=== PATIENT | male | born 1970 | race Caucasian/White ===

== ENCOUNTER 2016-08-20 11:34 | Emergency (ER) | payer OTHER ==
--- NOTE | 2016-08-20 12:36 | ED NURSING NOTES ---
Clinical Report - Nurses [address] [place] [address] [place] [address] 08/20/2016 11:35 Patient: TETE BUSTILLOS TRIAGE Acuity: LEVEL 4. Chief Complaint: INJURY TO RIGHT HAND. Alert. No acute distress. BOWNE COMA SCORE: Bowen Coma Scale: 15- eyes open spontaneously (4); best verbal response- oriented x 4 (5); best motor response- obeys commands (6). --11:52 Elizabeth Becerra R.N. 11:46 08/20/16. BP: 180/86. HR: 66. RR: 12. O2 saturation: 99% on room air. Temp: 97.8 F (oral). Pain level now: 0/10. --11:52 Elizabeth Becerra R.N. Weight: 113.3 kg stated. Height/Length: 71 inches Per Patient. BMI: 34.9. --11:51 Elizabeth Becerra R.N. Medications AmLODIPine Besylate Oral 10 mg. Lisinopril Oral 20 mg. --11:49 Elizabeth Becerar R.N. Medication/allergy information source: the patient. --11:52 Elizabeth Becerra R.N. Allergies Beta Adrenergic Blockers. --11:49 Elizabeth Becerra R.N. History Arrived by private vehicle, and unaccompanied. Primary physician (Lori). This occurred (2 days ago). He sustained a laceration from a sharp edge. 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 PAST MEDICAL HX: Tetanus status: up-to-date. Immunizations: up-to-date. SOCIAL HX: Never smoker. Occasional alcohol use. No drug use. FALL RISK ASSESSMENT: Fall risk assessment completed. No fall risk identified. NUTRITIONAL RISK ASSESSMENT: The nutritional risk assessment revealed no deficiencies. FUNCTIONAL ASSESSMENT: Functional assessment: no impairments noted. LEARNING NEEDS ASSESSMENT: The learning needs assessment revealed no barriers. SKIN INTEGRITY ASSESSMENT: Skin integrity risk assessment completed. No skin integrity risk identified. --11:52 Elizabeth Becerra R.N. PROBLEMS: Prior Nosebleeds. PVC - Premature Venticular Complex(s). Hypertension. Epistaxis. CVA - Cerebrovascular Accident. --11:50 Elizabeth Becerra R.N. ADDITIONAL SURGERIES: Femur. --11:50 Elizabeth Becerra R.N. Assessment GENERAL / NEURO / PSYCH: Alert. Oriented X 4. Appears in no acute distress. Patient appears calm and cooperative. RESPIRATORY: Respirations not labored. CVS: Capillary refill less than 2 seconds. SKIN: Mucous membranes are pink. Skin is warm and dry. --11:52 Elizabeth Becerra R.N. Interventions ID band on patient. To treatment room. --11:52 Elizabeth Becerra R.N. PHYSICAL ASSESSMENT 11:53 08/20/16. Ambulatory to room. GENERAL / NEURO / PSYCH: Oriented X 4. Alert. Appears in no acute distress. EXTREMITIES: Capillary refill is less than 2 seconds in the extremities. Extremity pulses are within normal limits. Neuro-vascular status intact to the extremity. SKIN: Skin intact. Skin is warm and dry. --11:53 Elizabeth Becerra R.N. NURSING PROGRESS NOTES 11:53 08/20/16. Two patient identifiers checked. Call light placed in reach. Side rails up. Bed placed in lowest position. Brakes of bed on. Patient ready for evaluation- chart flagged. --11:53 Elizabeth Becerra R.N. DISPOSITION / DISCHARGE Departure time: 12:54. Condition at departure: improved. No learning barriers present. Discharge instructions provided and reviewed with the patient. Patient verbalized understanding. Written instructions provided in Kazakh. The patient was discharged home. He left the Emergency Department ambulatory and via private vehicle. --12:54 Tiffanie Maciel R.N. Locked/Released at 08/20/2016 13:57 by Tiffanie Maciel R.N.
--- NOTE | 2016-08-20 12:36 | ED NURSING NOTES ---
Clinical Report - Nurses [address] [place] [place] [address] 08/20/2016 11:35 Patient: TETE BUSTILLOS TRIAGE Acuity: LEVEL 4. Chief Complaint: INJURY TO RIGHT HAND. Alert. No acute distress. BOWEN COMA SCORE: Bowen Coma Scale: 15- eyes open spontaneously (4); best verbal response- oriented x 4 (5); best motor response- obeys commands (6). --11:52 Elizabeth Becerra R.N. 11:46 08/20/16. BP: 180/86. HR: 66. RR: 12. O2 saturation: 99% on room air. Temp: 97.8 F (oral). Pain level now: 0/10. --11:52 Elizabeth Becerra R.N. Weight: 113.3 kg stated. Height/Length: 71 inches Per Patient. BMI: 34.9. --11:51 Elizabeth Becerra R.N. Medications AmLODIPine Besylate Oral 10 mg. Lisinopril Oral 20 mg. --11:49 Elizabeth Becerra R.N. Medication/allergy information source: the patient. --11:52 Elizabeth Becerra R.N. Allergies Beta Adrenergic Blockers. --11:49 Elizabeth Becerra R.N. History Arrived by private vehicle, and unaccompanied. Primary physician (Lori). This occurred (2 days ago). He sustained a laceration from a sharp edge. 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 PAST MEDICAL HX: Tetanus status: up-to-date. Immunizations: up-to-date. SOCIAL HX: Never smoker. Occasional alcohol use. No drug use. FALL RISK ASSESSMENT: Fall risk assessment completed. No fall risk identified. NUTRITIONAL RISK ASSESSMENT: The nutritional risk assessment revealed no deficiencies. FUNCTIONAL ASSESSMENT: Functional assessment: no impairments noted. LEARNING NEEDS ASSESSMENT: The learning needs assessment revealed no barriers. SKIN INTEGRITY ASSESSMENT: Skin integrity risk assessment completed. No skin integrity risk identified. --11:52 Elizabeth Becerra R.N. PROBLEMS: Prior Nosebleeds. PVC - Premature Venticular Complex(s). Hypertension. Epistaxis. CVA - Cerebrovascular Accident. --11:50 Elizabeth Becerra R.N. ADDITIONAL SURGERIES: Femur. --11:50 Elizabeth Becerra R.N. Assessment GENERAL / NEURO / PSYCH: Alert. Oriented X 4. Appears in no acute distress. Patient appears calm and cooperative. RESPIRATORY: Respirations not labored. CVS: Capillary refill less than 2 seconds. SKIN: Mucous membranes are pink. Skin is warm and dry. --11:52 Elizabeth Becerra R.N. Interventions ID band on patient. To treatment room. --11:52 Elizabeth Becerra R.N. PHYSICAL ASSESSMENT 11:53 08/20/16. Ambulatory to room. GENERAL / NEURO / PSYCH: Oriented X 4. Alert. Appears in no acute distress. EXTREMITIES: Capillary refill is less than 2 seconds in the extremities. Extremity pulses are within normal limits. Neuro-vascular status intact to the extremity. SKIN: Skin intact. Skin is warm and dry. --11:53 Elizabeth Becerra R.N. NURSING PROGRESS NOTES 11:53 08/20/16. Two patient identifiers checked. Call light placed in reach. Side rails up. Bed placed in lowest position. Brakes of bed on. Patient ready for evaluation- chart flagged. --11:53 Elizabeth Becerra R.N. DISPOSITION / DISCHARGE Departure time: 12:54. Condition at departure: improved. No learning barriers present. Discharge instructions provided and reviewed with the patient. Patient verbalized understanding. Written instructions provided in Nigerien. The patient was discharged home. He left the Emergency Department ambulatory and via private vehicle. --12:54 Tiffanie Maciel R.N. Locked/Released at 08/20/2016 13:57 by Tiffanie Maciel R.N.
--- NOTE | 2016-08-20 13:57 | ED CLINICAL REPORT ---
Clinical Report - Physicians/Mid Levels [facility] [address] [place] [address] 08/20/2016 11:35 Patient: TETE BUSTILLOS Time Seen: 1230; initial patient contact, initial documentation, patient care assumed. Arrived- By private vehicle. Historian- patient. HISTORY OF PRESENT ILLNESS Chief Complaint: Injury to the right hand. The injury happened about 2 days ago. The patient sustained a laceration from a sharp edge (metal food can while opening it). Occurred at home. Patient is not experiencing pain. Patient denies injury to the head or neck. No other injury. ( wound care being done with peroxide, soap and water and lavender). REVIEW OF SYSTEMS The patient sustained a laceration. No swelling, tingling, numbness or weakness. All systems otherwise negative, except as recorded above. PAST HISTORY See nurses notes. PROBLEMS: Prior Nosebleeds. PVC - Premature Venticular Complex(s). Hypertension. Epistaxis. CVA - Cerebrovascular Accident. --11:50 Elizabeth Becerra R.N. ADDITIONAL SURGERIES: Femur. --11:50 Elizabeth Becerra R.N. The patient's dominant hand is the right. Tetanus immunization status is up-to-date. SOCIAL HISTORY Never smoker. No alcohol use or drug use. No recent travel. Is a local resident. FAMILY HISTORY No significant family medical history. ADDITIONAL NOTES The nursing notes have been reviewed with agreement regarding the chief complaint, HPI, ROS, PMH and patient medications and allergies. PHYSICAL EXAM Vital Signs: 08/20/2016 11:46 BP: 180/86. HR: 66. RR: 12. O2 saturation: 99%. Temp: 97.8 F. Pain level now: 0/10. Have been reviewed as abnormal and appear to be correct. Hypertensive. Heart rate normal. Respiratory rate normal. Temperature normal. Oxygen saturation normal. Appearance: Alert. Oriented X3. No acute distress. Head: Head atraumatic. Eyes: Pupils equal, round and reactive to light. Eyes normal inspection. Respiratory: No respiratory distress. Skin: Skin warm and dry. Skin intact. Extremities: Hand injury present. Right thumb-index finger web space: superficial 1.0 cm laceration. Neurovascular intact distally. (healing 1cm lac, no active bleeding, no s/s of infection, wound clean, no erythema, nontender, no dc, no warmth, no fb). No erythema, tenderness, swelling, abrasion or ecchymosis. No puncture wound, foreign body or deformity. No limitation in movement. No wrist injury. Hand and wrist exam otherwise negative. Extremities otherwise negative. Neuro, Vascular and Tendons: Vascular status intact. Sensation intact. Motor intact. Tendon function intact. Neuro: Oriented X 3. No motor deficit. No sensory deficit. Note: isolated injury to hand. PROGRESS AND PROCEDURES Patient counseled in person regarding the patient's stable condition, normal exam and diagnosis. Differential Diagnosis: Other possible considerations: hand lac, fb, infection, delayed tx, skin avulsion, tendon injury. Above considerations are based on history and physical exam. Differential diagnosis was discussed with patient. Disposition: Discharged home in good and improved condition (12:36). Condition: good and stable. CLINICAL IMPRESSION Single superficial laceration to the right hand. Delayed treatment.No infection, foreign body present or right fingernail injury. INSTRUCTIONS Protect wound and keep wound area clean. Soak in warm soapy water twice daily. Apply bacitracin twice daily. Follow-up: Follow up with your doctor in about three days as needed and for wound check. Call for an appointment. Summary of care provided to patient. Screening today revealed the patient's blood pressure to be in the hypertensive range. The patient should follow up with a primary care provider for blood pressure management. Understanding of the discharge instructions verbalized by patient. (Electronically signed by Bridgette Bruno A.R.N.P. 08/20/2016 13:00)
--- NOTE | 2016-08-20 13:57 | ED DISCHARGE INSTRUCTIONS ---
Patient: TETE BUSTILLOS General Instructions [facility] VisitID: [id number] [place] [address] 45y, M Registration Date/Time: 08/20/2016 Single superficial laceration to the right hand. Delayed treatment.No infection, foreign body present or right fingernail injury. INSTRUCTIONS Protect wound and keep wound area clean. Soak in warm soapy water twice daily. Apply bacitracin twice daily. Follow-up: Follow up with your doctor in about three days as needed and for wound check. Call for an appointment. Summary of care provided to patient. Screening today revealed the patient's blood pressure to be in the hypertensive range. The patient should follow up with a primary care provider for blood pressure management. Understanding of the discharge instructions verbalized by patient. ADDITIONAL INFORMATION Laceration, Extremity (Sutures, Jc, Or Tape) A laceration is a cut through the skin. This will usually require stitches (sutures) or jc if it is deep. Minor cuts may be treated with surgical tape closures. Home care The following guidelines will help you care for your laceration at home: Keep the wound clean and dry. If a bandage was applied and it becomes wet or dirty, replace it. Otherwise, leave it in place for the first 24 hours, then change it once a day or as directed. If stitches or jc were used, clean the wound daily: After removing the bandage, wash the area with soap and water. Use a wet cotton swab to loosen and remove any blood or crust that forms. After cleaning, keep the wound clean and dry. Talk with your doctor before applying any antibiotic ointment to the wound. Reapply the bandage. You may remove the bandage to shower as usual after the first 24 hours, but do not soak the area in water (no swimming) until the stitches or jc are removed. If surgical tape closures were used, keep the area clean and dry. If it becomes wet, blot it dry with a towel. The doctor may prescribe an antibiotic cream or ointment to prevent infection. Do not stop taking this medication until you have finished the prescribed course or the doctor tells you to stop. The doctor may also prescribe medications for pain. Follow the doctors instructions for taking these medications. If you have chronic liver or kidney disease or ever had a stomach ulcer or GI bleeding, talk with your doctor before using these medicines. Follow-up care Follow up with your health care provider. Most skin wounds heal within ten days. However, an infection may sometimes occur despite proper treatment. Therefore, check the wound daily for the signs of infection listed below. Stitches and jc should be removed within 714 days. If surgical tape closures were used, you may remove them after 10 days, if they have not fallen off by then. Notify your doctor if you notice persistent numbness or weakness in the injured extremity. (Note:A radiologist will review any X-rays that were taken. We will notify you of any new findings that may affect your care.) When to seek medical care Get prompt medical attention if any of these occur: Increasing pain in the wound Redness, swelling, or pus coming from the wound Fever of 100.4F (38C) or higher, or as directed by your health care provider If stitches or jc come apart or fall out before your next appointment If the surgical tape closures fall off within seven days, or the wound edges re-open Bleeding not controlled by direct pressure You have been given the following additional information: Laceration, Extrem (Suture, Staple, Or Tape) (Electronically signed by Bridgette Bruno A.R.N.P. 08/20/2016 13:00)
--- NOTE | 2016-08-20 13:57 | ED ORDER SUMMARY ---
..... Patient: TETE BUSTILLOS OrderSheet [facility] VisitID: [id number] [address] [place] [address] 45y, M Registration Date/Time: 08/20/2016 ORDER SHEET Weight: 113.3 kg (stated) Allergies: Beta Adrenergic Blockers GENERAL ORDERS: Dress Wounds (12:36 08/20/2016 Kaushik A.R.N.P.) (12:52 Narayan Goodson.Salas) MEDICATION ORDERS: IV FLUIDS: ORDER SHEET NOTES: [Electronically signed by Bridgette BrunoRIvelisseNIvelissePIvelisse (12:59 08/20/2016)] [Electronically signed by Tiffanie Maciel R.N. (13:57 08/20/2016)] [Electronically locked/signed by Tiffanie Maciel R.N. (13:57 08/20/2016)]
--- NOTE | 2016-08-20 13:57 | ED ORDER SUMMARY ---
..... Patient: TETE BUSTILLOS OrderSheet [facility] VisitID: [id number] [address] [place] [address] 45y, M Registration Date/Time: 08/20/2016 ORDER SHEET Weight: 113.3 kg (stated) Allergies: Beta Adrenergic Blockers GENERAL ORDERS: Dress Wounds (12:36 08/20/2016 Kaushik A.R.N.P.) (12:52 Narayan Goodson.[place]as) MEDICATION ORDERS: IV FLUIDS: ORDER SHEET NOTES: [Electronically signed by Bridgette BrunoRIvelisseNIvelissePIvelisse (12:59 08/20/2016)] [Electronically signed by Tiffanie Maciel R.N. (13:57 08/20/2016)] [Electronically locked/signed by Tiffanie Maciel R.N. (13:57 08/20/2016)]
--- NOTE | 2016-08-20 13:57 | ED MED RECONCILIATION SUMMARY ---
Patient: TETE BUSTILLOS Medication Reconciliation Report [facility] VisitID: [id number] [address] [place] [address] 45y, M Registration Date/Time: 08/20/2016 Weight: 113.3 kg Height/Length: 71 in. BMI: 34.9 ALLERGIES: Beta Adrenergic Blockers The patient's Home Medications are listed below: THE FOLLOWING MEDICATIONS NEED TO BE RECONCILED: AmLODIPine Besylate Oral 10 mg Lisinopril Oral 20 mg The source(s) of the original Home Medication information: patient The following Medications were given to the patient in the Emergency Department: None. The following Medications were prescribed to the patient: None.
--- NOTE | 2016-08-20 13:57 | ED MAR SUMMARY ---
..... Medication Administration Record [facility] [address] [place], [place] [id number] Patient: TETE BUSTILLOS Visit ID: [id number] 45y, M Weight: 113.3 kg Height/Length: 71 in BMI: 34.9 ALLERGIES: Beta Adrenergic Blockers
--- NOTE | 2016-08-20 13:57 | ED MAR SUMMARY ---
..... Medication Administration Record [facility] [address] [place], [place] [id number] Patient: TETE BUSTILLOS Visit ID: [id number] 45y, M Weight: 113.3 kg Height/Length: 71 in BMI: 34.9 ALLERGIES: Beta Adrenergic Blockers
--- NOTE | 2016-08-20 13:57 | ED MED RECONCILIATION SUMMARY ---
Patient: TETE BUSTILLOS Medication Reconciliation Report [facility] VisitID: [id number] [address] [place] [address] 45y, M Registration Date/Time: 08/20/2016 Weight: 113.3 kg Height/Length: 71 in. BMI: 34.9 ALLERGIES: Beta Adrenergic Blockers The patient's Home Medications are listed below: THE FOLLOWING MEDICATIONS NEED TO BE RECONCILED: AmLODIPine Besylate Oral 10 mg Lisinopril Oral 20 mg The source(s) of the original Home Medication information: patient The following Medications were given to the patient in the Emergency Department: None. The following Medications were prescribed to the patient: None.
== END 2016-08-20 12:55 | disposition home or self-care (01) ==
LOC: ED SRH 11:34
DX: S61.411A Laceration without foreign body of right hand, initial encounter (principal); W26.8XXA Contact with other sharp object(s), not elsewhere classified, initial encounter; Y93.9 Activity, unspecified; Y92.009 Unspecified place in unspecified non-institutional (private) residence as the place of occurrence of the external cause; Y99.9 Unspecified external cause status; I10 Essential (primary) hypertension

== ENCOUNTER 2016-12-08 06:48 | Emergency (ER) | payer OTHER ==
--- NOTE | 2016-12-08 10:53 | DIAGNOSTIC IMAGING REPORT ---
PROCEDURE: CT ABD/PELVIS WITH CONTRAST CLINICAL INDICATION: Lower abdominal pain. TECHNIQUE: 125 ml of Isovue 300 were injected intravenously and axial images were obtained of the entire abdomen and pelvis with sagittal and coronal reformations. COMPARISON: Renal ultrasound 01/11/2016. FINDINGS: ABDOMEN: Lung bases are clear. Heart size is normal. Multiple calcified gallstones. 5 mm hypoenhancing lesion in the dome of the liver posteriorly, indeterminate but likely benign. Spleen measures 15 cm. Pancreas, adrenal glands and right kidney are unremarkable. There is mild left hydro ureteral nephrosis and perinephric edema but no evidence of distal ureteral calculus. Normal abdominal aorta. Nonspecific bowel gas pattern. PELVIS: Normal appendix no diverticulosis. Diffuse moderate urinary bladder wall thickening. No pelvic mass or inflammatory changes. Moderate L4-5 degenerative changes. IMPRESSION: 1. Mild left hydroureteronephrosis without evidence of a calculus. This may be due to a recently passed calculus. 2. Diffuse urinary bladder wall thickening suspicious for cystitis versus decompression. Correlate clinically. 3. Cholelithiasis 4. Splenomegaly 5. Results discussed with Dr. Taylor All CT scans at this facility use dose modulation, iterative reconstruction, and/or weight-based dosing when appropriate to reduce radiation dose to as low as reasonably achievable.
--- NOTE | 2016-12-08 11:08 | ED CLINICAL REPORT ---
Clinical Report - Physicians/Mid Levels [facility] [address] [place] [address] 12/08/2016 6:49 Patient: TETE BUSTILLOS Time Seen: 06:51 Dec 08 2016. Arrived- By private vehicle. Historian- patient. HISTORY OF PRESENT ILLNESS Chief Complaint: ABDOMINAL PAIN. At its maximum, severity described as moderate. When seen in the E.D., severity described as moderate. It is described as "pain" and it is described as located in the lower abdomen and in the pelvic area. This started about 4 days [employer] and is still present. No nausea, loss of appetite, vomiting or diarrhea. Similar symptoms previously: None. Recent medical care: Not recently seen/assessed. REVIEW OF SYSTEMS The patient has had difficulty with urination, and pain on urination. The patient has had moderate urinary frequency. No chest pain or difficulty breathing. All systems otherwise negative, except as recorded above. PAST HISTORY PVC - Premature Venticular Complex(s). Hypertension. Epistaxis. - UTI SURGERIES: Femur. Medications: AmLODIPine Besylate Oral 10 mg. Lisinopril Oral 20 mg. Allergies: Beta Adrenergic Blockers. SOCIAL HISTORY Never smoker. No alcohol use or drug use. ADDITIONAL NOTES The nursing notes have been reviewed. PHYSICAL EXAM Vital Signs: 12/08/2016 06:53 BP: 174/86. HR: 78. RR: 20. O2 saturation: 99%. Temp: 97.5 F. Pain level now: 10/10. Oxygen saturation normal. Appearance: Alert. Oriented X3. No acute distress. (pleasant. Cooperative.). Eyes: Pupils equal, round and reactive to light. Eyes normal inspection. No scleral icterus. ENT: Ears normal. Nose normal. Pharynx normal. Neck: Normal inspection. Neck supple. CVS: Normal heart rate and rhythm. Heart sounds normal. Pulses normal. Respiratory: No respiratory distress. Breath sounds normal. Chest nontender. Abdomen: Soft and nontender. Bowel sounds normal. (Negative Menezes's. No tenderness at McBurney's. No rebound or guarding. No masses. Mild suprapubic tenderness.). Skin: Skin warm and dry. Normal skin color. No rash. Normal skin turgor. Extremities: Extremities exhibit normal ROM. No lower extremity edema. LABS, X-RAYS, AND EKG Abdominal CT: PROCEDURE: CT ABD/PELVIS WITH CONTRAST CLINICAL INDICATION: Lower abdominal pain. TECHNIQUE: 125 ml of Isovue 300 were injected intravenously and axial images were obtained of the entire abdomen and pelvis with sagittal and coronal reformations. COMPARISON: Renal ultrasound 01/11/2016. FINDINGS: ABDOMEN: Lung bases are clear. Heart size is normal. Multiple calcified gallstones. 5 mm hypoenhancing lesion in the dome of the liver posteriorly, indeterminate but likely benign. Spleen measures 15 cm. Pancreas, adrenal glands and right kidney are unremarkable. There is mild left hydro ureteral nephrosis and perinephric edema but no evidence of distal ureteral calculus. Normal abdominal aorta. Nonspecific bowel gas pattern. PELVIS: Normal appendix no diverticulosis. Diffuse moderate urinary bladder wall thickening. No pelvic mass or inflammatory changes. Moderate L4-5 degenerative changes. IMPRESSION: 1. Mild left hydroureteronephrosis without evidence of a calculus. This may be due to a recently passed calculus. 2. Diffuse urinary bladder wall thickening suspicious for cystitis versus decompression. Correlate clinically. 3. Cholelithiasis 4. Splenomegaly. Study type: abdomen and pelvis. Abdominal CT performed with IV contrast. The study was independently viewed by me and interpreted by the radiologist. The study was discussed with the radiologist (via pacs and phone). Laboratory Tests: UA-Culture if indicated: (GRETTA: 12/08/2016 06:55) ( MsgRcvd 12/08/2016 08:08) Final results Test Result Flag Units (Reference) URINE COLOR YELLOW URINE APPEARANCE CLEAR URINE GLUCOSE NEGATIVE (NEGATIVE) URINE BILIRUBIN NEGATIVE (NEGATIVE) URINE KETONE NEGATIVE (NEGATIVE) URINE SPECIFIC GRAVITY 1.025 (1.010-1.030) URINE PH 6.5 (5.0-8.0) URINE PROTEIN 3+ (NEGATIVE) URINE UROBILINOGEN 0.2 EU/dL (0.2-1.0) URINE NITRITE POSITIVE (NEGATIVE) URINE BLOOD 3+ (NEGATIVE) URINE LEUK ESTERASE TRACE (NEGATIVE) URINE RBC 5-10 rbc/hpf (0-1) URINE WBC 3-5 wbc/hpf (0-1) URINE EPITHELIAL CELLS 1-3 EPI/hpf (0-5) URINE BACTERIA FEW (1+) (NONE SEEN) URINE COMMENT CULTURE INDICATED URINE CULTURES ARE SET-UP BASED ON THE FOLLOWING CRITERIA:POSITIVE NITRITEPOSITIVE LEUKOCYTE ESTERASEGREATER THAN 10 WHITE BLOOD CELLSMODERATE (2+) OR GREATER BACTERIA CBC w Diff: (GRETTA: 12/08/2016 08:50) ( [facility] 12/08/2016 09:40) Final results Test Result Flag Units (Reference) WHITE BLOOD COUNT 11.7 H K/uL (4.5-11.5) RED BLOOD COUNT 4.80 M/uL (4.50-5.90) HEMOGLOBIN 13.6 gm/dL (13.5-17.5) HEMATOCRIT 40.4 L % (41.0-53.0) MEAN CELL VOLUME 84 fL (80-100) MEAN CORPUSCULAR HGB 28 pg (26-34) MEAN CORPUSCULAR HGB CONC 34 g/dL (31-37) RED CELL DISTRIBUTION WIDTH 14.3 % (11.6-14.8) PLATELET COUNT 333 K/uL (150-400) NEUTROPHIL % 82.9 H % (50-75) LYMPH % 11.0 L % (25-40) MONO % 4.2 % (3-14) EOSINOPHIL % 1.6 % (0-4) BASOPHIL % 0.3 % (0-2) CMP: (GRETTA: 12/08/2016 08:50) ( [facility] 12/08/2016 09:56) Final results Test Result Flag Units (Reference) GLUCOSE 118 H mg/dL (70-110) BUN 11 mg/dL (7-18) CREATININE 0.8 mg/dL (0.6-1.3) Estimated GFR >60 mL/min Estimated GFR- >60 mL/min Note: Persistent reduction over 3 months in eGFR<60 mL/min/1.73 m2 defines CKD. Patients with eGFR values>=60 mL/min/1.73 m2 may also have CKD if evidence ofpersistent proteinuria. Additional information may be foundat [email or web address]. SODIUM 140 mmol/L (136-145) POTASSIUM 4.5 mmol/L (3.5-5.1) CHLORIDE 102 mmol/L (98-107) CARBON DIOXIDE 26 mmol/L (21-32) CALCIUM 8.5 mg/dL (8.5-10.1) TOTAL PROTEIN 7.4 g/dL (6.4-8.2) ALBUMIN 3.2 L g/dL (3.3-5.0) BILIRUBIN, TOTAL 0.6 mg/dL (0.0-1.0) ALKALINE PHOSPHATASE 104 U/L (46-116) AST (SGOT) 20 U/L (15-37) ALT (SGPT) 36 U/L (12-78) Culture, Urine: (GRETTA: 12/08/2016 06:55) ( MsgRcvd 12/10/2016 10:12) Final results Test Result Flag Units (Reference) CULTURE, URINE DATE: 12/10/16 PRELIM REPORT: FINAL REPORT -- ESCCOL QUANTITATIVE URINE GROWTH: GREATER THAN 100,000 CFU/mL AMOXICILLIN/CLAVULANATE AMPICILLIN S AMPICILLIN/SULBACTAM S CEFAZOLIN S CEFTRIAXONE S CEFEPIME S CEFUROXIME CIPROFLOXACIN S ERTAPENEM S GENTAMICIN S IMIPENEM S LEVOFLOXACIN S MEROPENEM S NITROFURANTOIN S TETRACYCLINE PIP/TAZO S TRIMETHOPRIM/SULFAMETHOXAZOLE S . PROGRESS AND PROCEDURES Course of Care: The patient is a pleasant 46-year-old malewho was initially evaluated by the physician prior to the start of my shift. Workup has been started. I have introduced myself to the patient perform eye on history and physical examination. Agree with the prior physician's assessment and plan. We'll follow up on patient's laboratory studies as well as CT scan of the abdomen and pelvis for his abdominal pain. Patient is nontoxic and in no acute distress. Patient is updated on the results of the tests and the pending CT scan of the abdomen and pelvis. Workup is remarkable for the findings above. Because of the patient's symptoms, we'll be treating the patient with antibiotics. No signs of a surgical abdomen on CT scan or on patient's examination. Patient continues to be nontoxic and in no acute distress. Pain is significantly improved while here in the emergency department. Patient appears to be stable outpatient candidate. Do not feel further workup here in the emergency department is required in light of patient's CT scan as well as laboratory studies. Patient will be treated as an outpatient with antibiotics. Discussed with the patient is workup here in the emergency department including diagnosis, home care, follow-up, and return precautions. All questions have been answered. The patient expressed understanding of these instructions and was agreeable to them. Repeat examination also continues to be benign. Disposition: Discharged. Condition: good. CLINICAL IMPRESSION Acute suprapubic abdominal pain of unknown cause. Cholelithiasis (incidental finding). No obstruction or cholecystitis. Acute urinary tract infection with cystitis and hematuria. mild left hydroureter. INSTRUCTIONS Warnings: GENERAL WARNINGS: Return or contact your physician immediately if your condition worsens or changes unexpectedly, if not improving as expected, or if other problems arise. SPECIFICALLY, return if you develop pain, fever, vomiting, the inability to keep fluids down, blood in vomitus, blood in diarrhea, fainting or lightheadedness. Your Current Medications: CONTINUE TAKING THE FOLLOWING MEDICATIONS: AmLODIPine Besylate Oral : 10 mg. Lisinopril Oral : 20 mg. Prescription Medications: Henderson 5 mg / 325 mg tablets: take 1 orally every 6 hours as needed for pain. Dispense twelve (12). No refill. Substitution is permissible. Bactrim DS 800 mg / 160 mg: take 1 tablet orally every 12 hours for 10 days. No refill. Substitution is permissible. (disp 20 tabs) Motrin 600 mg tablets: take 1 tablet orally every 6 hours as needed for pain, stiffness or swelling. Dispense thirty (30). No refill. Substitution is permissible. (take with food) Follow-up: Return to the emergency department as needed. Follow up with your doctor in three days. Reason for referral: recheck today's concerns. Summary of care provided to patient via paper. Screening today revealed the patient's blood pressure to be in the normal range. The patient should follow up with a primary care provider for blood pressure management. Understanding of the discharge instructions verbalized by patient. (Electronically signed by Rolf Taylor Dr. 12/14/2016 14:25)
--- NOTE | 2016-12-08 11:08 | ED NURSING NOTES ---
Clinical Report - Nurses [facility] [address] [place] [address] 12/08/2016 6:49 Patient: TETE BUSTILLOS TRIAGE Triage time 06:51. Acuity: LEVEL 3. Chief Complaint: ABDOMINAL PAIN and (frequent urination). Alert. BOWEN COMA SCORE: Bowen Coma Scale: 15- eyes open spontaneously (4); best verbal response- oriented x 4 (5); best motor response- obeys commands (6). --06:57 Jake Soriano R.N. 06:53 12/08/16. BP: 174/86. HR: 78. RR: 20 (regular and unlabored). O2 saturation: 99% on room air. Temp: 97.5 F (oral). Pain level now: 05/01. --06:57 Jake Soriano R.N. <<STRICKEN ENTRY-- 06:53 12/08/16. BP: 212/106. HR: 78. RR: 20 (regular and unlabored). O2 saturation: 99% on room air. Temp: 97.5 F (oral). Pain level now: 05/01. --06:57 Jake Soriano R.N. --END STRIKE>> Wrong Value. --06:59 Jake Soriano R.N. Weight: 104.7 kg stated. Height/Length: 69 inches Per Patient. BMI: 34.1. --06:53 Jake Soriano R.N. Medications AmLODIPine Besylate Oral 10 mg. Lisinopril Oral 20 mg. --06:52 Jake Soriano R.N. Allergies Beta Adrenergic Blockers. --06:52 Jake Soriano R.N. History Arrived by private vehicle. Historian: patient. Unaccompanied. Onset. (4 days ago). SOCIAL HX: Never smoker. No alcohol use or drug use. ( Denies HI/SI). ABUSE ASSESSMENT: No report of abuse. SELF HARM ASSESSMENT: A self harm assessment was performed. The patient answered "no" to the question "Do you have thoughts of harming or killing yourself?" and "Are you here because you tried to hurt yourself?". FALL RISK ASSESSMENT: Fall risk assessment completed. No fall risk identified. NUTRITIONAL RISK ASSESSMENT: The nutritional risk assessment revealed no deficiencies. FUNCTIONAL ASSESSMENT: Functional assessment: no impairments noted. LEARNING NEEDS ASSESSMENT: The learning needs assessment revealed no barriers. SKIN INTEGRITY ASSESSMENT: Skin integrity risk assessment completed. No skin integrity risk identified. --06:57 Jake Soriano R.N. PROBLEMS: PVC - Premature Venticular Complex(s). Hypertension. Epistaxis. --06:52 Jake Soriano R.N. ADDITIONAL SURGERIES: Femur. --06:52 Jake Soriano R.N. Interventions ID band on patient. To treatment room. --06:57 Jake Soriano R.N. PHYSICAL ASSESSMENT Ambulatory to room. GENERAL / NEURO / PSYCH: Alert. Oriented X 4. Appears in pain and anxious. HEENT: Mucous membranes are pink. RESPIRATORY: Respirations not labored. Breath sounds within normal limits. CVS: No abnormal heart sounds. Capillary refill less than 2 seconds. GI / : Abdomen soft and nontender. No abdominal tenderness. SKIN: Skin is warm and dry. --06:58 Jake Soriano R.N. GI / : ( lower middle abdominal pain). --06:59 Jake Soriano R.N. NURSING PROGRESS NOTES ( Report given to Jeffrey Dawson RN). --07:09 Jake Soriano R.N. 07:30 12/08/2016 Hydrocodone-APAP (Hydrocodone-Acetaminophen) PO 5/325 mg Tablets 1 tab given. Allergies verified, confirmed 5 rights and sedative warning given to the patient. --07:31 Jeffrey Zelaya R.N. ( Bladder scan done by [facility], shows 12ml urine. Pt up to void, minimal result. Medicated.). --07:34 Jeffrey Zelaya R.N. 08:40 12/08/2016 Site #1 started via IV in the right antecubital space with an 20g angiocath, with aseptic technique and good blood return; one attempt. Blood drawn: rainbow set. Labeled in the presence of the patient and sent to the lab. Saline lock flushed with 10 mL saline. --08:42 Jeffrey Zelaya R.N. 08:40 12/08/2016 Started bag #1 1000 mL IV Fluids IV NS (Saline); bolus of 1000 mL over 1 hour(s) via site #1. Allergies verified and confirmed 5 rights. IV patency established. IV site checked: no pain, redness, or swelling. IV flushed thoroughly pre- and post-medication administration. --08:43 Jeffrey Zelaya R.N. 08:50 12/08/2016 Started 750 mg of Levaquin (Levofloxacin) IVPB in bag #1 150 mL; at 100 mL/hr over 1.5 hour(s) via site #1 via IV pump. Allergies verified and confirmed 5 rights. IV patency established. IV site checked: no pain, redness, or swelling. IV flushed thoroughly pre- and post-medication administration. --08:56 Jeffrey Zelaya R.N. 08:30 12/08/16. BP: 162/87 (large adult cuff) taken on the left arm, while lying. HR: 75. RR: 16. O2 saturation: 95% on room air. Pain level now: 10/30. --09:06 Jeffrey Zelaya R.N. 09:00 12/08/16. BP: 154/84. HR: 72. RR: 16. O2 saturation: 97% on room air. Pain level now: 10/30. --09:53 Jeffrey Zelaya R.N. 09:30 12/08/16. BP: 137/86. HR: 70. RR: 16. O2 saturation: 96%. Pain level now: 09/01. --09:55 Jeffrey Zelaya R.N. 10:08. Patient transported to NH by wheelchair. --10:12 Jeffrey Zelaya R.N. 08:00 12/08/2016 Hydrocodone-APAP PO Response: no adverse reaction pain is improving. Symptoms have improved. --10:42 Jeffrey Zelaya R.N. 10:05 12/08/2016 IV Fluids IV NS Discontinued: bag #1 completed. Total amount infused: 1000 mL. IV patency established. IV site checked: no pain, redness, or swelling. IV flushed thoroughly. --10:41 Jeffrey Zelaya R.N. 10:40 12/08/2016 Levaquin IVPB Discontinued: bag #1 completed. Total amount infused: 150 mL. IV patency established. IV site checked: no pain, redness, or swelling. IV flushed thoroughly. --10:42 Jeffrey Zelaya R.N. 10:30 12/08/16. BP: 144/88. HR: 70. RR: 16. O2 saturation: 96% on room air. Pain level now: 09/01. --10:50 Jeffrey Zelaya R.N. 11:23 12/08/2016 Bactrim DS (Sulfamethoxazole-TMP DS) PO Tablets 1 tab given. Allergies verified and confirmed 5 rights. --11:23 Jeffrey Zelaya R.N. DISPOSITION / DISCHARGE 11:27 12/08/2016 Site #1 removed upon discharge. Bandage applied. --11:32 Jeffrey Zelaya R.N. Departure time: 1130. Condition at departure: improved and stable. No learning barriers present. Discharge instructions provided and reviewed with the patient. Reviewed medication(s). Patient verbalized understanding. Written instructions provided in Georgian. The patient was discharged by the physician. He was discharged home. He left the Emergency Department ambulatory and via private vehicle. Patient driving. --11:32 Jeffrey Zelaya R.N. 11:00 12/08/16. BP: 141/94. HR: 73. RR: 16. O2 saturation: 97% on room air. Temp: 97.7 F. Pain level now: 09/01. --11:32 Jeffrey Zelaya R.N. Locked/Released at 12/08/2016 12:47 by Jeffrey Zelaya R.N.
--- NOTE | 2016-12-08 11:08 | ED ORDER SUMMARY ---
..... Patient: TETE BUSTILLOS OrderSheet [facility] VisitID: [id number] [place] [address] 46y, M Registration Date/Time: 12/08/2016 ORDER SHEET Weight: 104.7 kg (stated) Allergies: Beta Adrenergic Blockers GENERAL ORDERS: UA-Culture if indicated Urgent (07:05 12/08/2016 DDkevyns R.N. per protocol) (7:05 Raciels R.N.) Bladder Scan (07:12/08/2016 Jacklyn SARGENT) (7:31 JSimbeck R.N.) CT Abd/Pel w Cont (No) (pending) Urgent (08:39 12/08/2016 Jacklyn SARGENT) (Ack 8:46 Lalo) (10:40 Dinorah R.N.) CBC w Diff Urgent (08:39 12/08/2016 Jacklyn SARGENT) (Ack 8:46 Lalo) (9:06 SURAJimbeck R.N.) CMP Urgent (08:39 12/08/2016 Jackyln SARGENT) (Ack 8:46 Lalo) (9:06 Dungeck R.N.) MEDICATION ORDERS: Hydrocodone-APAP PO 5/325 mg (NOW) (07:10 12/08/2016 Jacklyn SARGENT) (7:31 JSimbeck R.N.) Bactrim DS PO (Tablet 800-160 mg) 1 tab (NOW) (11:07 12/08/2016 Palomo Dumont) (11:23 SURAJimbeck R.N.) IV FLUIDS: IV NS : initial bolus 1000 mL (1000 mL/hr), then none - for X1 (NOW); Routine (08:27 12/08/2016 Jacklyn SARGENT) (8:43 SURAJimbeck R.N.) Levaquin IV 750 mg/150 mL (NOW) (08:39 12/08/2016 Jacklyn SARGENT) (8:56 SURAJimbeck R.N.) ORDER SHEET NOTES: [Electronically signed by Jeffrey Zelaya R.N. (12:47 12/08/2016)] [Electronically signed by Rolf Taylor Dr. (14:25 12/14/2016)] [Electronically locked/signed by Jeffrey Zelaya R.N. (12:47 12/08/2016)]
--- NOTE | 2016-12-08 11:08 | ED ORDER SUMMARY ---
..... Patient: TETE BUSTILLOS OrderSheet [facility] VisitID: [id number] [place] [address] 46y, M Registration Date/Time: 12/08/2016 ORDER SHEET Weight: 104.7 kg (stated) Allergies: Beta Adrenergic Blockers GENERAL ORDERS: UA-Culture if indicated Urgent (07:05 12/08/2016 DDkevyns R.N. per protocol) (7:05 Raciels R.N.) Bladder Scan (07:12/08/2016 Jacklyn SARGENT) (7:31 JSimbeck R.N.) CT Abd/Pel w Cont (No) (pending) Urgent (08:39 12/08/2016 Jacklyn SARGENT) (Ack 8:46 Lalo) (10:40 Dinorah R.N.) CBC w Diff Urgent (08:39 12/08/2016 Jacklyn SARGENT) (Ack 8:46 Lalo) (9:06 SURAJimbeck R.N.) CMP Urgent (08:39 12/08/2016 Jacklyn SARGENT) (Ack 8:46 Lalo) (9:06 Dungeck R.N.) MEDICATION ORDERS: Hydrocodone-APAP PO 5/325 mg (NOW) (07:10 12/08/2016 Jacklyn SARGENT) (7:31 JSimbeck R.N.) Bactrim DS PO (Tablet 800-160 mg) 1 tab (NOW) (11:07 12/08/2016 Palomo Dumont) (11:23 SURAJimbeck R.N.) IV FLUIDS: IV NS : initial bolus 1000 mL (1000 mL/hr), then none - for X1 (NOW); Routine (08:27 12/08/2016 Jacklyn SARGENT) (8:43 SURAJimbeck R.N.) Levaquin IV 750 mg/150 mL (NOW) (08:39 12/08/2016 Jacklyn SARGENT) (8:56 SURAJimbeck R.N.) ORDER SHEET NOTES: [Electronically signed by Jeffrey Zelaya R.N. (12:47 12/08/2016)] [Electronically signed by Rolf Taylor Dr. (14:25 12/14/2016)] [Electronically locked/signed by Jeffrey Zelaya R.N. (12:47 12/08/2016)]
--- NOTE | 2016-12-14 14:25 | ED MED RECONCILIATION SUMMARY ---
Patient: TETE BUSTILLOS Medication Reconciliation Report [facility] VisitID: [id number] [address] [place] [address] 46y, M Registration Date/Time: 12/08/2016 Weight: 104.7 kg Height/Length: 69 in. BMI: 34.1 ALLERGIES: Beta Adrenergic Blockers The patient's Home Medications are listed below: CONTINUE TAKING THE FOLLOWING MEDICATIONS: AmLODIPine Besylate Oral 10 mg Lisinopril Oral 20 mg The source(s) of the original Home Medication information: Not obtained. The following Medications were given to the patient in the Emergency Department: Hydrocodone-APAP [PO] PO 1 tab, administered: 12/08/2016 7:30:00 AM IV NS IV Fluids bolus 1000 mL over 1 hour(s), administered: 12/08/2016 8:40:00 AM Levaquin [IVPB] IVPB bolus 0, then 750 mg 100 mL/hr, administered: 12/08/2016 8:50:00 AM Bactrim DS [PO] PO 1 tab, administered: 12/08/2016 11:23:00 AM The following Medications were prescribed to the patient: [place] 5 mg / 325 mg tablets: take 1 orally every 6 hours as needed for pain. Dispense twelve (12). No refill. Substitution is permissible. -- Rolf Taylor Dr. Bactrim DS 800 mg / 160 mg: take 1 tablet orally every 12 hours for 10 days. No refill. Substitution is permissible.(disp 20 tabs) -- Rolf Taylor Dr. Motrin 600 mg tablets: take 1 tablet orally every 6 hours as needed for pain, stiffness or swelling. Dispense thirty (30). No refill. Substitution is permissible.(take with food) -- Rolf Taylor Dr.
--- NOTE | 2016-12-14 14:25 | ED MAR SUMMARY ---
..... Medication Administration Record [facility] [address] [place] [address] Patient: TETE BUSTILLOS Visit ID: [id number] 46y, M Weight: 104.7 kg Height/Length: 69 in BMI: 34.1 ALLERGIES: Beta Adrenergic Blockers Given 07:30 12/08/2016 Jeffrey Zelaya R.N. Medication Administered: HYDROCODONE-APAP [PO] (HYDROCODONE-ACETAMINOPHEN), Dose: 1 tab 5/325 mg Tablets PO. Medication Ordered: Hydrocodone-APAP PO 5/325 mg (NOW). Start 08:40 12/08/2016 Jeffrey Zelaya R.N., Stop 10:05 12/08/2016 Jeffrey Zelaya R.N. Medication Administered: IV NS (SALINE), Dose: IV Fluids, Bolus: 1000 mL over 1 hour(s), Dispensed: 1000 mL bag, Site: #1 right AC. Medication Ordered: IV NS : initial bolus 1000 mL (1000 mL/hr), then none - for X1 (NOW); Routine. Start 08:50 12/08/2016 Jeffrey Zelaya R.N., Stop 10:40 12/08/2016 Jeffrey Zelaya R.N. Medication Administered: LEVAQUIN [IVPB] (LEVOFLOXACIN), Dose: 750 mg IVPB over 1.5 hour(s), Rate: 100 mL/hr, Dispensed: 150 mL bag, Site: #1 right AC. Medication Ordered: Levaquin IV 750 mg/150 mL (NOW). Given 11:23 12/08/2016 Jeffrey Zelaya R.N. Medication Administered: BACTRIM DS [PO] (SULFAMETHOXAZOLE-TMP DS), Dose: 1 tab Tablets PO. Medication Ordered: Bactrim DS PO (Tablet 800-160 mg) 1 tab (NOW).
--- NOTE | 2016-12-14 14:25 | ED MAR SUMMARY ---
..... Medication Administration Record [facility] [address] [place] [address] Patient: TETE BUSTILLOS Visit ID: [id number] 46y, M Weight: 104.7 kg Height/Length: 69 in BMI: 34.1 ALLERGIES: Beta Adrenergic Blockers Given 07:30 12/08/2016 Jeffrey Zelaya R.N. Medication Administered: HYDROCODONE-APAP [PO] (HYDROCODONE-ACETAMINOPHEN), Dose: 1 tab 5/325 mg Tablets PO. Medication Ordered: Hydrocodone-APAP PO 5/325 mg (NOW). Start 08:40 12/08/2016 Jeffrey Zelaya R.N., Stop 10:05 12/08/2016 Jeffrey Zelaya R.N. Medication Administered: IV NS (SALINE), Dose: IV Fluids, Bolus: 1000 mL over 1 hour(s), Dispensed: 1000 mL bag, Site: #1 right AC. Medication Ordered: IV NS : initial bolus 1000 mL (1000 mL/hr), then none - for X1 (NOW); Routine. Start 08:50 12/08/2016 Jeffrey Zelaya R.N., Stop 10:40 12/08/2016 Jeffrey Zelaya R.N. Medication Administered: LEVAQUIN [IVPB] (LEVOFLOXACIN), Dose: 750 mg IVPB over 1.5 hour(s), Rate: 100 mL/hr, Dispensed: 150 mL bag, Site: #1 right AC. Medication Ordered: Levaquin IV 750 mg/150 mL (NOW). Given 11:23 12/08/2016 Jeffrey Zelaya R.N. Medication Administered: BACTRIM DS [PO] (SULFAMETHOXAZOLE-TMP DS), Dose: 1 tab Tablets PO. Medication Ordered: Bactrim DS PO (Tablet 800-160 mg) 1 tab (NOW).
--- NOTE | 2016-12-14 14:25 | ED DISCHARGE INSTRUCTIONS ---
Patient: TETE BUSTILLOS General Instructions [facility] VisitID: [id number] [place] [address] 46y, M Registration Date/Time: 12/08/2016 Acute suprapubic abdominal pain of unknown cause. Cholelithiasis (incidental finding). No obstruction or cholecystitis. Acute urinary tract infection with cystitis and hematuria. mild left hydroureter. INSTRUCTIONS Warnings: GENERAL WARNINGS: Return or contact your physician immediately if your condition worsens or changes unexpectedly, if not improving as expected, or if other problems arise. SPECIFICALLY, return if you develop pain, fever, vomiting, the inability to keep fluids down, blood in vomitus, blood in diarrhea, fainting or lightheadedness. Your Current Medications: CONTINUE TAKING THE FOLLOWING MEDICATIONS: AmLODIPine Besylate Oral : 10 mg. Lisinopril Oral : 20 mg. Prescription Medications: Jean 5 mg / 325 mg tablets: take 1 orally every 6 hours as needed for pain. Dispense twelve (12). No refill. Substitution is permissible. Bactrim DS 800 mg / 160 mg: take 1 tablet orally every 12 hours for 10 days. No refill. Substitution is permissible. (disp 20 tabs) Motrin 600 mg tablets: take 1 tablet orally every 6 hours as needed for pain, stiffness or swelling. Dispense thirty (30). No refill. Substitution is permissible. (take with food) Follow-up: Return to the emergency department as needed. Follow up with your doctor in three days. Reason for referral: recheck today's concerns. Summary of care provided to patient via paper. Screening today revealed the patient's blood pressure to be in the normal range. The patient should follow up with a primary care provider for blood pressure management. Understanding of the discharge instructions verbalized by patient. ADDITIONAL INFORMATION Abdominal Pain,Uncertain Cause [Male] Based on your visit today, the exact cause of your abdominalpain is not clear. Your exam and tests do not indicate a dangerous cause at this time. However, the signs of a serious problem may take more time to appear. Although your evaluation was reassuring today, sometimes early in the course of many conditions, exam and lab tests can appear normal. Therefore, it is important for you to watch for any new symptoms or worsening of your condition. Causes It may not be obvious what caused your symptoms. Pay attention to things that do seem to make your symptoms worse or better and discuss this with your doctor when you follow up. Diagnosis The evaluation of abdominal pain in the emergency department may onlyrequire an exam by the doctor or it may include blood, urine or imaging studies, depending on many factors. Sometimes exams and tests can identify a cause but in many cases, a clear cause is not found. Further testing at follow up visits may help to suggest a clear diagnosis. Home Care Rest as much as possible until your next exam. Try to avoid any medications (unless otherwise directed by your doctor), foods, activities, or other factors that you may have contributed to your symptoms. Try to eat foods that you know that you have tolerated well in the past. Certain diets may be recommended for some conditions that cause abdominal pain. However, since the cause of your symptoms may not be clear, discuss your diet more with your primary care provider or specialist for further recommendations. Eating several small meals per day as opposed to 2 or 3 larger meals may help. Monitor closely for anything that may make your symptoms worse or better. Pay close attention to symptoms below that may indicate worsening of your condition. Follow Up and Precautions See your doctoras instructed or sooneror if your symptoms are not improving.In some cases, you may need more testing. When to Seek Medical Attention Contact your doctor or see medical attention ifany of the following occur: Pain is becoming worse You are unable to take your medications due to excessive vomiting Swelling of the abdomen Fever of 100.4F (38C) or higher, or as directed by your health care provider Blood in vomit or bowel movements (dark red or black color) Jaundice (yellow color of eyes and skin) New onset of weakness, dizziness or fainting New onset of chest, arm, back, neck or jaw pain Bladder Infection,Male (Adult) A bladder infection ("cystitis" or "UTI") usually causes a constant urge to urinate, and a burning when passing urine. Urine may be cloudy, smelly or dark. There may be also be pain in the lower abdomen. Cystitis in males is not common. It may be caused by a partial blockage in the urinary system that keeps the bladder from emptying completely. This is most often related to an enlarged prostate gland. Home Care: Drink lots of fluids (at least 6-8 glasses a day). This will flush the bacteria out of your bladder. Avoid sexual intercourse until your symptoms are gone. Avoid caffeine, alcohol, and spicy foods. They could irritate the bladder. A bladder infection is treated with antibiotics. You may also be given Pyridium (generic - phenazopyridine) to reduce burning with urination. This will cause urine to become a bright orange color, which can stain clothing. Follow Up with your doctor or this facility if ALL symptoms have not cleared within five days. It is important to keep your follow up appointment to discuss with your doctor the need for further tests of the urinary tract. Get Prompt Medical Attention if any of the following occur: Fever of 100.4F (38C) or higher, or as directed by your healthcare provider No improvement by the third day of treatment Increasing back or abdominal pain Repeated vomiting; unable to keep medicine down Weakness, dizziness or fainting GallstonesWith Biliary Colic [Confirmed Dx] The abdominal pain that you have today is due to spasm of the gallbladder. The gallbladder is a small sac under the liver which stores and releases bile. Bile is a fluid that aids in the digestion of fat. A gallstone may form inside the gallbladder and block the flow of bile fluid. This causes mild to severe crampy pain in the mid or right upper abdomen with nausea and vomiting. Home Care: Rest in bed and follow a clear liquid diet until feeling better. If pain or nausea medicine was given to help with your symptoms, take these as directed. Fat in your diet makes the gallbladder contract and may cause increased pain. Therefore, avoid fat in your diet over the next two days and follow a low-fat diet after that. If you are overweight, a low-fat diet will also help you lose weight. Follow Up with your doctor. There is a 50% chance that you will have another episode of pain from your gallstones during the next 2 years. Removal of the gallbladder is the treatment of choice to prevent this. Schedule an appointment with your own doctor during the next week to discuss the treatment options. Get Prompt Medical Attention if any of the following occur: Pain gets worse or moves to the right lower abdomen Repeated vomiting Swelling of the abdomen Pain lasts over 6 hours Fever of 100.4F (38C) or higher, or as directed by your healthcare provider Weakness, dizziness or fainting Dark urine or light colored stools Yellow color of the skin or eyes Chest, arm, back, neck or jaw pain Hydrocodone Bitartrate, Acetaminophen Oral tablet What is this medicine? ACETAMINOPHEN; HYDROCODONE (a set a JOSE A bianca fen; mode droe KOE done) is a pain reliever. It is used to treat mild to moderate pain. How should I use this medicine? Take this medicine by mouth. Swallow it with a full glass of water. Follow the directions on the prescription label. If the medicine upsets your stomach, take the medicine with food or milk. Do not take more than you are told to take. Talk to your paper sorter and counter regarding the use of this medicine in children. This medicine is not approved for use in children. What side effects may I notice from receiving this medicine? Side effects that you should report to your doctor or health healthcare sales representative as soon as possible: allergic reactions like skin rash, itching or hives, swelling of the face, lips, or tongue breathing problems confusion feeling faint or lightheaded, falls stomach pain yellowing of the eyes or skin Side effects that usually do not require medical attention (report to your doctor or health healthcare sales representative if they continue or are bothersome): nausea, vomiting stomach upset What may interact with this medicine? alcohol antihistamines isoniazid medicines for depression, anxiety, or psychotic disturbances medicines for sleep muscle relaxants naltrexone narcotic medicines (opiates) for pain phenobarbital ritonavir tramadol What if I miss a dose? If you miss a dose, take it as soon as you can. If it is almost time for your next dose, take only that dose. Do not take double or extra doses. Where should I keep my medicine? Keep out of the reach of children. This medicine can be abused. Keep your medicine in a safe place to protect it from theft. Do not share this medicine with anyone. Selling or giving away this medicine is dangerous and against the law. Store at room temperature between 15 and 30 degrees C (59 and 86 degrees F). Protect from light. Keep container tightly closed. Throw away any unused medicine after the expiration date. Discard unused medicine and used packaging carefully. Pets and children can be harmed if they find used or lost packages. What should I tell my health care provider before I take this medicine? They need to know if you have any of these conditions: brain tumor Crohn's disease, inflammatory bowel disease, or ulcerative colitis drink more than 3 alcohol-containing drinks per day drug abuse or addiction head injury heart or circulation problems kidney disease or problems going to the bathroom liver disease lung disease, asthma, or breathing problems an unusual or allergic reaction to acetaminophen, hydrocodone, other opioid analgesics, other medicines, foods, dyes, or preservatives or trying to get breast-feeding What should I watch for while using this medicine? Tell your doctor or health healthcare sales representative if your pain does not go away, if it gets worse, or if you have new or a different type of pain. You may develop tolerance to the medicine. Tolerance means that you will need a higher dose of the medicine for pain relief. Tolerance is normal and is expected if you take the medicine for a long time. Do not suddenly stop taking your medicine because you may develop a severe reaction. Your body becomes used to the medicine. This does NOT mean you are addicted. Addiction is a behavior related to getting and using a drug for a non-medical reason. If you have pain, you have a medical reason to take pain medicine. Your doctor will tell you how much medicine to take. If your doctor wants you to stop the medicine, the dose will be slowly lowered over time to avoid any side effects. You may get drowsy or dizzy when you first start taking the medicine or change doses. Do not drive, use machinery, or do anything that may be dangerous until you know how the medicine affects you. Stand or sit up slowly. There are different types of narcotic medicines (opiates) for pain. If you take more than one type at the same time, you may have more side effects. Give your health care provider a list of all medicines you use. Your doctor will tell you how much medicine to take. Do not take more medicine than directed. Call emergency for help if you have problems breathing. The medicine will cause constipation. Try to have a bowel movement at least every 2 to 3 days. If you do not have a bowel movement for 3 days, call your doctor or health healthcare sales representative. Too much acetaminophen can be very dangerous. Do not take Tylenol (acetaminophen) or medicines that contain acetaminophen with this medicine. Many non-prescription medicines contain acetaminophen. Always read the labels carefully. Sulfamethoxazole, Trimethoprim Oral tablet What is this medicine? SULFAMETHOXAZOLE; TRIMETHOPRIM or SMX-TMP (suhl fuh meth OK chris zohl; trye METH oh prim) is a combination of a sulfonamide antibiotic and a second antibiotic, trimethoprim. It is used to treat or prevent certain kinds of bacterial infections. It will not work for colds, flu, or other viral infections. How should I use this medicine? Take this medicine by mouth with a full glass of water. Follow the directions on the prescription label. Take your medicine at regular intervals. Do not take it more often than directed. Do not skip doses or stop your medicine early. Talk to your paper sorter and counter regarding the use of this medicine in children. Special care may be needed. This medicine has been used in children as young as 2 months of age. What side effects may I notice from receiving this medicine? Side effects that you should report to your doctor or health healthcare sales representative as soon as possible: allergic reactions like skin rash or hives, swelling of the face, lips, or tongue breathing problems fever or chills, sore throat irregular heartbeat, chest pain joint or muscle pain pain or difficulty passing urine red pinpoint spots on skin redness, blistering, peeling or loosening of the skin, including inside the mouth unusual bleeding or bruising unusually weak or tired yellowing of the eyes or skin Side effects that usually do not require medical attention (report to your doctor or health healthcare sales representative if they continue or are bothersome): diarrhea dizziness headache loss of appetite nausea, vomiting nervousness What may interact with this medicine? Do not take this medicine with any of the following medications: aminobenzoate potassium dofetilide metronidazole This medicine may also interact with the following medications: MAGDA inhibitors like benazepril, enalapril, lisinopril, and ramipril cyclosporine digoxin diuretics indomethacin medicines for diabetes methenamine methotrexate phenytoin potassium supplements pyrimethamine sulfinpyrazone tricyclic antidepressants warfarin What if I miss a dose? If you miss a dose, take it as soon as you can. If it is almost time for your next dose, take only that dose. Do not take double or extra doses. Where should I keep my medicine? Keep out of the reach of children. Store at room temperature between 20 to 25 degrees C (68 to 77 degrees F). Protect from light. Throw away any unused medicine after the expiration date. What should I tell my health care provider before I take this medicine? They need to know if you have any of these conditions: anemia asthma being treated with anticonvulsants if you frequently drink alcohol containing drinks kidney disease liver disease low level of folic acid or ancpvan-2-obpylwuor dehydrogenase poor nutrition or malabsorption porphyria severe allergies thyroid disorder an unusual or allergic reaction to sulfamethoxazole, trimethoprim, sulfa drugs, other medicines, foods, dyes, or preservatives or trying to get breast-feeding What should I watch for while using this medicine? Tell your doctor or health healthcare sales representative if your symptoms do not improve. Drink several glasses of water a day to reduce the risk of kidney problems. Do not treat diarrhea with over the counter products. Contact your doctor if you have diarrhea that lasts more than 2 days or if it is severe and watery. This medicine can make you more sensitive to the sun. Keep out of the sun. If you cannot avoid being in the sun, wear protective clothing and use a sunscreen. Do not use sun lamps or tanning beds/booths. Ibuprofen Oral tablet What is this medicine? IBUPROFEN (eye BYOO proe fen) is a non-steroidal anti-inflammatory drug (NSAID). It is used for dental pain, fever, headaches or migraines, osteoarthritis, rheumatoid arthritis, or painful monthly periods. It can also relieve minor aches and pains caused by a cold, flu, or sore throat. How should I use this medicine? Take this medicine by mouth with a glass of water. Follow the directions on the prescription label. Take this medicine with food if your stomach gets upset. Try to not lie down for at least 10 minutes after you take the medicine. Take your medicine at regular intervals. Do not take your medicine more often than directed. A special MedGuide will be given to you by the pharmacist with each prescription and refill. Be sure to read this information carefully each time. Talk to your paper sorter and counter regarding the use of this medicine in children. Special care may be needed. What side effects may I notice from receiving this medicine? Side effects that you should report to your doctor or health healthcare sales representative as soon as possible: allergic reactions like skin rash, itching or hives, swelling of the face, lips, or tongue black or bloody stools, blood in the urine or in vomit breathing problems changes in vision chest pain general ill feeling or flu-like symptoms nausea or vomiting redness, blistering, peeling or loosening of the skin, including inside the mouth slurred speech or weakness on one side of the body stomach pain unexplained weight gain or swelling unusually weak or tired yellowing of eyes or skin Side effects that usually do not require medical attention (report to your doctor or health healthcare sales representative if they continue or are bothersome): constipation or diarrhea dizziness gas or heartburn stomach upset What may interact with this medicine? Do not take this medicine with any of the following medications: cidofovir ketorolac methotrexate pemetrexed This medicine may also interact with the following medications: alcohol aspirin diuretics lithium other drugs for inflammation like prednisone warfarin What if I miss a dose? If you miss a dose, take it as soon as you can. If it is almost time for your next dose, take only that dose. Do not take double or extra doses. Where should I keep my medicine? Keep out of the reach of children. Store at room temperature between 15 and 30 degrees C (59 and 86 degrees F). Keep container tightly closed. Throw away any unused medicine after the expiration date. What should I tell my health care provider before I take this medicine? They need to know if you have any of these conditions: asthma cigarette smoker drink more than 3 alcohol containing drinks a day heart disease or circulation problems such as heart failure or leg edema (fluid retention) high blood pressure kidney disease liver disease stomach bleeding or ulcers an unusual or allergic reaction to ibuprofen, aspirin, other NSAIDS, other medicines, foods, dyes, or preservatives or trying to get breast-feeding What should I watch for while using this medicine? Tell your doctor or healthcare professional if your symptoms do not start to get better or if they get worse. This medicine does not prevent heart attack or stroke. In fact, this medicine may increase the chance of a heart attack or stroke. The chance may increase with longer use of this medicine and in people who have heart disease. If you take aspirin to prevent heart attack or stroke, talk with your doctor or health healthcare sales representative. Do not take other medicines that contain aspirin, ibuprofen, or naproxen with this medicine. Side effects such as stomach upset, nausea, or ulcers may be more likely to occur. Many medicines available without a prescription should not be taken with this medicine. This medicine can cause ulcers and bleeding in the stomach and intestines at any time during treatment. Ulcers and bleeding can happen without warning symptoms and can cause . To reduce your risk, do not smoke cigarettes or drink alcohol while you are taking this medicine. You may get drowsy or dizzy. Do not drive, use machinery, or do anything that needs mental alertness until you know how this medicine affects you. Do not stand or sit up quickly, especially if you are an older patient. This reduces the risk of dizzy or fainting spells. This medicine can cause you to bleed more easily. Try to avoid damage to your teeth and gums when you brush or floss your teeth. You have been given the following additional information: Abdominal Pain, Unknown Cause, (Male) Bladder Infection, Male (Adult) Biliary Colic With Gallstone (Confirmed) Hydrocodone Bitartrate, Acetaminophen Oral tablet Sulfamethoxazole, Trimethoprim Oral tablet Ibuprofen Oral tablet (Electronically signed by Rolf Taylor Dr. 12/14/2016 14:25)
--- NOTE | 2016-12-14 14:25 | ED MED RECONCILIATION SUMMARY ---
Patient: TETE BUSTILLOS Medication Reconciliation Report [facility] VisitID: [id number] [address] [place] [address] 46y, M Registration Date/Time: 12/08/2016 Weight: 104.7 kg Height/Length: 69 in. BMI: 34.1 ALLERGIES: Beta Adrenergic Blockers The patient's Home Medications are listed below: CONTINUE TAKING THE FOLLOWING MEDICATIONS: AmLODIPine Besylate Oral 10 mg Lisinopril Oral 20 mg The source(s) of the original Home Medication information: Not obtained. The following Medications were given to the patient in the Emergency Department: Hydrocodone-APAP [PO] PO 1 tab, administered: 12/08/2016 7:30:00 AM IV NS IV Fluids bolus 1000 mL over 1 hour(s), administered: 12/08/2016 8:40:00 AM Levaquin [IVPB] IVPB bolus 0, then 750 mg 100 mL/hr, administered: 12/08/2016 8:50:00 AM Bactrim DS [PO] PO 1 tab, administered: 12/08/2016 11:23:00 AM The following Medications were prescribed to the patient: [place] 5 mg / 325 mg tablets: take 1 orally every 6 hours as needed for pain. Dispense twelve (12). No refill. Substitution is permissible. -- Rolf Taylor Dr. Bactrim DS 800 mg / 160 mg: take 1 tablet orally every 12 hours for 10 days. No refill. Substitution is permissible.(disp 20 tabs) -- Rolf Taylor Dr. Motrin 600 mg tablets: take 1 tablet orally every 6 hours as needed for pain, stiffness or swelling. Dispense thirty (30). No refill. Substitution is permissible.(take with food) -- Rolf Taylor Dr.
== END 2016-12-08 11:30 | disposition home or self-care (01) ==
LOC: ED SRH 06:48
DX: N30.01 Acute cystitis with hematuria (principal); R10.2 Pelvic and perineal pain; K80.20 Calculus of gallbladder without cholecystitis without obstruction; N13.6 Pyonephrosis; Z79.899 Other long term (current) drug therapy
CPT/HCPCS: 90004; 90100; 90148; 90469; 95059